=== PATIENT | female | born 2000 | race Two or more races ===

== ENCOUNTER 2024-07-01 18:29 | Emergency (ER) | payer OTHER, SELFPAY ==
[2024-07-01] MEDS ORDERED: Lorazepam 1 MG TAB ONE (19:43)
[2024-07-01 20:10] LABS: #Basophils 0.11 10x3/uL (0.0-0.2); %Basophils 1.2 % (0.0-1.0); %Eosinophils 6.2 % (0.0-10.0); %Lymphocytes 38.3 % (21.0-51.0); %Monocytes 6.7 % (0.0-10.0); %Neutrophils 47.4 % (42.0-75.0); Hematocrit 35.5 % (36.0-47.0); Hemoglobin 11.4 g/dL (12.0-16.0); Mean Corpuscular HGB CONC 32.1 g/dL (32.0-36.0); Mean Corpuscular Hemoglobin 25.7 pg (27.0-31.0); Mean Corpuscular Volume 80.1 fL (78.0-98.0); Mean Platelet Volume 9.3 fL (7.4-10.4); Platelet Count 417 10x3/uL (130-400); RBC Distribution Width 14.1 % (11.5-14.5); Red Blood Cell (RBC) Count 4.43 mill/uL (4.20-5.40)
[2024-07-01 20:13] LABS: Bilirubin Negative (Negative); Blood, Urine Trace (Negative); Glucose, Urine (Dipstick) Negative (Negative); Ketone, Urine 15 mg/dL (Negative); Leukocyte Negative (Negative); Nitrite Negative (Negative); Protein, Urine (Dipstick) Trace mg/dL (Neg-Trace); Urobilinogen 0.2 mg/dL (Less than 2)
[2024-07-01 20:18] LABS: Bacteria/HPF None Seen HPF (None Seen); CAUTI Indications for Culture Pelvic or flank pain; RBC/HPF 0-3 HPF (0-3)
[2024-07-01 20:21] LABS: Clarity Hazy (Clear)
[2024-07-01 20:22] LABS: Specific Gravity, Urine 1.031 (1.002-1.036)
[2024-07-01 20:23] LABS: Urine Culture Reflex Yes Yes
[2024-07-01 20:24] LABS: Pregnancy Test - Urine (BHCG) Negative (Negative); Pregu Control Background? CLEAR/WHITE (CLR/WHITE); Pregu Control Bar Appear? YES (CONTROL BAR); Specific Gravity 1.031 (1.002-1.036)
[2024-07-01 20:29] LABS: ALT (SGPT) Less than 7 U/L (Less than 34); AST (SGOT) 19 U/L (11-34); Albumin 4.2 g/dL (3.1-4.5); Alkaline Phosphatase 68 U/L (40-110); Anion Gap 7 mmol/L (10-20); BUN (Urea Nitrogen) 14 mg/dL (7.0-18.7); Bilirubin, Total 0.9 mg/dL (0.3-1.2); Calc. Creatinine Clearance 0 mL/min (70-130); Calcium 8.8 mg/dL (7.8-10.44); Carbon Dioxide 21 mmol/L (22-29); Chloride 112 mmol/L (98-107); Estimated GFR 93; Globulin 3.1 g/dL (2.4-3.5); Glucose 82 mg/dL (70-105); Lipase 49 U/L (8-78); Potassium 3.3 mmol/L (3.5-5.1); Protein, Total 7.3 g/dL (6.0-8.3); Sodium 137 mmol/L (136-145); Troponin I Less than 0.010 ng/mL (< 0.028)
== END 2024-07-01 22:10 | disposition home or self-care (01) ==
LOC: ERS 18:29
DX: R07.1 Chest pain on breathing (principal); J20.9 Acute bronchitis, unspecified
CPT/HCPCS: 71046; 80053; 81001; 81025; 83690; 83880; 84443; 84484; 85025; 85379; 87086; 93005